=== PATIENT | male | born 1950 | race Caucasian/White ===

== ENCOUNTER 2018-08-23 08:15 | Day surgery (SDC) | payer BC, MEDICARE ==
[~2018-08-23] VITALS: Ht 177.8 cm; Wt 90.3 kg
[2018-08-23] VITALS (7 sets, daily range): BP systolic 80–147; BP diastolic 41–83
[~2018-08-23 08:15] MED LIST: SODIUM CHLORIDE 0.9% 1000ML 0 ML IV ONE
[2018-08-23] MEDS ORDERED: CITA-107 PO (09:38)
[2018-08-23] MEDS ORDERED: EVOL140S SQ (09:38)
[2018-08-23] MEDS ORDERED: PRAS10TA9 PO (09:38)
[2018-08-23] MEDS ORDERED: ALPR-411 PO (09:38)
[2018-08-23] MEDS ORDERED: METO25TA6 PO (09:38)
[2018-08-23] MEDS ORDERED: EZET10TA48 PO (09:38)
[2018-08-23] MEDS ORDERED: ATOR40TA71 PO (09:38)
[2018-08-23] MEDS ORDERED: PROPOFOL 10 MG/ML 20ML VIAL IV ONE ×2 (10:25)
== END 2018-08-23 11:28 | disposition home or self-care (01) ==
LOC: ENDO 08:15 → DAH 08:15 → ENDO 11:28
PROVIDERS: ATTEND Internal Medicine
DX: Z12.11 Encounter for screening for malignant neoplasm of colon (principal); K63.5 Polyp of colon; K57.30 Diverticulosis of large intestine without perforation or abscess without bleeding; K64.0 First degree hemorrhoids; E78.5 Hyperlipidemia, unspecified; I10 Essential (primary) hypertension; F41.9 Anxiety disorder, unspecified; I21.3 ST elevation (STEMI) myocardial infarction of unspecified site; I25.10 Atherosclerotic heart disease of native coronary artery without angina pectoris; F32.9 Major depressive disorder, single episode, unspecified; Z95.1 Presence of aortocoronary bypass graft; Z98.890 Other specified postprocedural states; Z79.899 Other long term (current) drug therapy; Z95.5 Presence of coronary angioplasty implant and graft; Z79.82 Long term (current) use of aspirin
CPT/HCPCS: 45380; 93005; A4606; J2704 ×2; J7030

== ENCOUNTER 2024-04-20 05:40 | Day surgery (SDC) | payer OTHER ==
--- NOTE | 2024-04-17 09:49 | EKG ---
[facility] Test Date: 2024-04-17 Test Time: 10:33:45 Pat Name: DORIAN BRICEÑO Department: [facility] Room: Gender: M Line Director: [id number] : 1950 Requested By: MEAGAN TOLBERT Order Number: [id number] Reading MD: Priyanka Magana Measurements Intervals [place] Rate: 45 P: 64 AL: 193 QRS: 62 QRSD: 93 T: 44 QT: 484 QTc: 418 Interpretive Statements Sinus bradycardia Compared to ECG 08/23/2018 08:33:58 Sinus rhythm no longer present Electronically Signed On 04-17-2024 18:08:47 [employer]ISH [employer] by Priyanka Magana Please click the below link to view image of tracing.
[2024-04-17 10:10] VITALS: BP 136/56; PULSE 46; RESP 18; TEMP 97.3
[2024-04-17 10:21] LABS: BASOPHILS # (AUTO) 0.05 K/uL (0.00-0.20); BASOPHILS % (AUTO) 0.8 % (0.0-5.0); EOSINOPHILS # (AUTO) 0.23 K/uL (0.00-0.70); EOSINOPHILS % (AUTO) 3.5 % (0.0-8.0); HEMATOCRIT 41.4 % (42-54); IMMATURE GRANULOCYTE ABSOLUTE 0.01 K/uL (0-1); LYMPHOCYTES # (AUTO) 1.7 K/uL (1.0-4.8); LYMPHOCYTES % (AUTO) 26.2 % (21.0-51.0); MEAN CORPUSCULAR HEMOGLOBIN 30.8 pg (27.0-33.0); MEAN CORPUSCULAR HGB CONC 33.1 g/dL (32.0-36.0); MONOCYTES # (AUTO) 0.6 K/uL (0.1-1.0); MONOCYTES % (AUTO) 8.8 % (3.0-13.0); NEUTROPHILS % (AUTO) 60.5 % (40.0-77.0); PLATELET COUNT (AUTO) 201 K/uL (130-400); RED BLOOD CELL COUNT(AUTO) 4.45 MIL/uL (4.50-6.20); RED CELL DISTRIBUTION WIDTH 12.4 % (11.0-15.5); WHITE BLOOD COUNT (AUTO) 6.6 K/uL (4.8-10.8)
[2024-04-17 10:26] LABS: APPEARANCE,URINE CLEAR (CLEAR); BILIRUBIN,URINE NEGATIVE (NEGATIVE); COLOR,URINE YELLOW (YELLOW); GLUCOSE, URINE (UA) NEGATIVE (NEGATIVE); KETONES,URINE NEGATIVE (NEGATIVE); LEUKOCYTE ESTERASE ,URINE NEGATIVE Leu/uL (NEGATIVE); NITRATE,URINE NEGATIVE (NEGATIVE); OCCULT BLOOD,URINE NEGATIVE (NEGATIVE); PROTEIN,URINE 20 mg/dL (NEGATIVE); UROBILINOGEN,URINE 0.2 mg/dL (0.2-1.0)
[2024-04-17 10:28] LABS: CREATININE 1.2 mg/dL (0.5-1.3); POTASSIUM 4.5 mmol/L (3.5-5.1)
[2024-04-17 10:31] LABS: ADD UA MICROSCOPIC YES
[2024-04-17 10:32] LABS: INR 0.97 (0.85-1.15); PROTHROMBIN TIME 10.9 SEC (9.6-11.6)
[2024-04-17 10:33] LABS: PARTIAL THROMBOPLASTIN TIME 26.3 SEC (26.3-35.5)
[2024-04-17 10:44] LABS: B-TYPE NATRIURETIC PEPTIDE 205 pg/mL (0-100)
[2024-04-17 10:46] LABS: MUCUS,URINE MOD LPF (None Seen); RBC,URINE 0-1 /HPF (0-1); SQUAMOUS EPITHELIAL CELL,UR RARE /HPF (0-2); WBC,URINE 0-1 /HPF (0-1)
--- NOTE | 2024-04-17 11:06 | HMCIMG ---
Exam Type: CHEST 1VW Clinical Information: PREOP Comparison: None Findings: There is cardiomegaly and there is status post median sternotomy. The lungs are clear of infiltrates. Impression: Clear lungs.
[~2024-04-20] VITALS: Ht 177.8 cm; Wt 89.5 kg
[2024-04-20] VITALS (11 sets, daily range): BP systolic 129–147; BP diastolic 51–90; PULSE 53–66; RESP 16; TEMP 97.2–98
[~2024-04-20 05:40] MED LIST changes: +ASPI-1197 PO; +CITA-108 PO; +EVOL140S2 SQ; +IBUP-1673 PO; +ICOS1CAP2 PO; +ISOS30TA92 PO; +METO50TA18 PO; +ROSU10TA72 PO; -SODIUM CHLORIDE 0.9% 1000ML 0 ML IV ONE; +TICA90TA PO; +VITAMIN B12 PO
[2024-04-20] MEDS: 0.9%NACL 1000ML 1,000 ML IV SCH (07:09)
[2024-04-20] MEDS: 0.9%NACL 1000ML 1,000 ML IV ONE (07:09)
[2024-04-20] MEDS ORDERED: LIDOCAINE HCL 400MG/20ML VIAL ONE (07:30)
[2024-04-20] MEDS ORDERED: MIDAZOLAM HCL 1 MG/ML 2ML VIAL ONE (07:30)
[2024-04-20] MEDS ORDERED: SODIUM BICARB 50MEQ 50ML VIAL 50 ML ONE (07:30)
[2024-04-20] MEDS ORDERED: FENTanyl CITRate PF 50 MCG/1 ML 2ML VIAL ONE (07:30)
[2024-04-20] MEDS ORDERED: HEParin 10,000 UNIT/10ML (1,000 UNIT/ML) VIAL ONE (07:31)
[2024-04-20] MEDS ORDERED: BIVALIRUDIN 250 MG/VIAL IV ONE (07:31)
[2024-04-20] MEDS ORDERED: IOHEXOL-350 75 ML VIAL IV ONE (07:31)
[2024-04-20] MEDS ORDERED: IOHEXOL 350 MG/ML 100ML INFUS..BTL IV ONE (07:31)
[2024-04-20] MEDS ORDERED: HEParin-NS 1,000 UNIT/500 ML 1,000 ML IV ONE (07:31)
[2024-04-20] MEDS ORDERED: NITROGLYCERIN 50MG VIAL ONE (07:37)
[2024-04-20] MEDS ORDERED: RANO500T2 PO (08:23)
[2024-04-20] MEDS ORDERED: NITR0.4T50 SL (08:23)
[2024-04-20] MEDS ORDERED: 0.9%NACL 1000ML 1,000 ML IV SCH (08:30)
--- NOTE | 2024-04-20 08:36 | PRN ---
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 The patient had been explained risks and benefits of the procedure and accepted prior to this procedure. Under local anesthesia with 1% lidocaine the right femoral artery was entered percutaneously using micropuncture technique under fluoroscopic and ultrasound guidance, and puncturing only the anterior wall of the vessel. A 6 [place]an sheath was advanced into the vessel. Left heart catheterization was carried out with a 6 [place]an angled pigtail. Left ventricular cineangiography was performed in [place] projection and a pullback recording was obtained. An exchange was made for a 6 [place] 4 cm left Mary which was used to engage the left main and obtain left coronary angiograms in multiple projections. An exchange made for 6 [place] 4 cm right Mary which was used to engage the right coronary and right coronary angiograms were obtained in multiple projections. The right Mary was then used to engage both saphenous vein grafts for vein graft angiogram, then the left subclavian for an exchange for an INT. With the INT we engaged the internal mammary for internal mammary angiograms in multiple projections. At the conclusion of the procedure Perclose closure was accomplished with excellent hemostasis and no complications. The patient was transferred from the powerhouse laborer in stable condition. Results: A. Hemodynamics: LVEDP 13 before and 20 after angiography. LV systolic pressure 149. Aortic root pressure 148/62, mean 92. B. Ventriculography: Left ventricular cineangiography demonstrates symmetric wall motion and normal size and geometry. Mitral valve is competent. Ejection fraction is 56% by planimetry. C. Coronary and graft arteriography: This is a right-dominant system. The right coronary supplies the posterior descending and posterolateral branch. There is critical 95-98% stenosis from the conus branch to the posterior descending. A patent saphenous vein graft inserts on the posterior descending branch of the right coronary and supplies the PDA and posterolateral. The left main is free of disease. The left anterior descending supplies a sizable diagonal which is totally occluded. There is minimal 40% narrowing at the origin of the LAD and there is a patent internal mammary that inserts on the LAD, supplying the LAD and circumflex systems. The vein graft to the diagonal is totally occluded. This appears to be a recent thrombotic occlusion in a previously stented vein graft. The left circumflex supplies a tiny obtuse marginal and a large inferolateral branch and is free of disease. Conclusions: Diffuse disease in the right coronary thankfully is well served by a large patent, healthy graft. Internal mammary to the LAD remains patent but the LAD system is free of high- grade disease, apart from an occluded diagonal with an occluded graft.. Circumflex system is widely patent and healthy. Recommendations: Consider Ranexa for anginal control relating to occlusion of a D1 vein graft. MEAGAN TOLBERT MD Apr 20, 2024 08:36
[2024-04-20] MEDS ORDERED: ASPIRIN 325MG EC TAB PO ONE (10:41)
== END 2024-04-20 12:29 | disposition home or self-care (01) ==
LOC: DAH 05:40
PROVIDERS: ATTEND Internal Medicine Cardiovascular Disease
DX: I25.118 Atherosclerotic heart disease of native coronary artery with other forms of angina pectoris (principal); R94.39 Abnormal result of other cardiovascular function study; I25.719 Atherosclerosis of autologous vein coronary artery bypass graft(s) with unspecified angina pectoris; I25.82 Chronic total occlusion of coronary artery; E78.2 Mixed hyperlipidemia; I25.2 Old myocardial infarction; Z82.49 Family history of ischemic heart disease and other diseases of the circulatory system; Z79.01 Long term (current) use of anticoagulants; Z87.891 Personal history of nicotine dependence; Z95.1 Presence of aortocoronary bypass graft; Z79.82 Long term (current) use of aspirin; Z79.899 Other long term (current) drug therapy; Z98.890 Other specified postprocedural states
CPT/HCPCS: 80048; 83880; 85025; 85610; 85730; 81001; 36415; 71045; 93005; 93459; C1769; C1894 ×2; C1760; Q9965 ×2; J3010; J3490 ×3; J7030; J2250; J1644; Q9967 ×2; A4215; A4222; A4221; A4663; A4216; A4606; A4223 ×3; 99156; 99157; J0583